=== PATIENT | female | born 1940 | race Caucasian/White ===

== ENCOUNTER 2022-07-29 00:17 | Day surgery (SDC) | payer MEDICARE, SELFPAY ==
[2022-07-18 13:18] VITALS: BMI 33.5
[2022-07-29 09:09] VITALS: BP 180/61; PULSE 57; RESP 18; TEMP 36.1; O2SAT 100; BMI 34.8
[2022-07-29] MEDS: LACTATED RINGERS 1,000 ML 150 ML IV CONT (09:25)
[2022-07-29 09:33] LABS: Glucose Point of Care 119 mg/dl (65-105)
--- NOTE | 2022-07-29 09:50 | PM.HPGS ---
History of Present Illness History of Present Illness Consent: Risks, benefits, and alternatives have been discussed and questions answered. Patient agrees to proceed with procedure. Chief complaint: neoplasm screening Narrative: Chela Paz is a 81 year old female Presents for screening colonoscopy. Patient reports her weight appetite bowel movements are normal. She describes intermittent bright red blood per rectum over the last 3 years. She states her bowel habits sometimes are regular. She states many years ago she was diagnosed with an anal fissure. Patient presents today for neoplasia screening. She reports her family history to be noncontributory. Review of Systems Review of Systems: Review of systems noncontributory. [facility] Past Medical History Medical History (Updated 06/03/22 @ 09:35 by Rodrigo Mixon MD) Anal fissure BMI 34.0-34.9,adult BMI 35.0-35.9,adult BMI 36.0-36.9,adult Mixed hyperlipidemia Family History Family History Father Heart disease Mother Hypertension Lung cancer Diabetes mellitus Social History Social History Smoking status: Never smoker Second hand tobacco smoke exposure: No Alcohol intake: never Substance use: never Substance use type: does not use Living arrangements: with family Additional occupation/education comments: RN Gender identity (if verbalized by the patient): Female Spiritual care concerns: No Meds Home Medications and Allergies Home Medications Medication Instructions Recorded Confirmed Type ascorbic acid (vitamin C) 500 mg 500 mg PO DAILY 11/07/19 07/18/22 History capsule aspirin 81 mg tablet,delayed 81 mg PO DAILY 11/07/19 07/18/22 History release (Adult Low Dose Aspirin) glucosamine-chondroitin 250 mg-200 1 tablet PO DAILY 11/07/19 07/18/22 History mg tablet (Osteo Bi-Flex) hsppdbak-mdd-nywpq acid 0.4 1 tablet PO DAILY 11/07/19 07/18/22 History mg-lycopene 300 mcg-lutein 250 mcg tablet (Centrum Silver) blood sugar diagnostic (OneTouch #50 ea 07/23/20 07/18/22 Rx Ultra Blue Test Strip) albuterol sulfate 90 mcg/actuation 2 puff inhalation Q4H PRN 10/22/20 07/18/22 Rx aerosol inhaler (Ventolin HFA) shortness of breath or wheezing #8.5 grams furosemide 20 mg tablet (Lasix) 20 mg PO QAM PRN edema 01/28/21 07/18/22 History methocarbamol 500 mg tablet 500 mg PO TID PRN muscle spasm #30 09/23/21 07/18/22 Rx tabs losartan 100 mg tablet 100 mg PO DAILY #90 tabs 01/08/22 07/18/22 Rx atenolol 50 mg tablet 50 mg PO DAILY #90 tabs 03/13/22 07/18/22 Rx hydrochlorothiazide 25 mg tablet 25 mg PO DAILY #90 tabs 03/13/22 07/18/22 Rx montelukast 10 mg tablet 10 mg PO DAILY #90 tabs 03/13/22 07/18/22 Rx (Singulair) dapagliflozin 5 mg tablet (Farxiga) 5 mg PO DAILY #90 tabs 03/31/22 07/18/22 Rx sodium,potassium,mag sulfates 17.5 See Rx Instructions PO .COMPLEX 06/26/22 07/18/22 Rx gram-3.13 gram-1.6 gram oral soln #354 mL (Suprep Bowel Prep Kit) meloxicam 15 mg tablet 15 mg PO DAILY #90 tabs 07/03/22 07/18/22 Rx fluticasone propionate 50 1 spray intranasal DAILY PRN 07/18/22 07/18/22 History mcg/actuation nasal Allergy Symptoms spray,suspension levothyroxine 125 mcg tablet 125 mcg PO DAILY 07/18/22 07/18/22 History Allergies Allergy/AdvReac Type Severity Reaction Status Date / Time adhesive Allergy Unknown Rash Verified 07/29/22 09:08 codeine Allergy Unknown Nausea Verified 07/29/22 09:08 iodine Allergy Unknown Rash Verified 07/29/22 09:08 Vital Signs Vital Signs - 24 hr 07/29/22 09:09 Temperature 97.0 F L Pulse Rate 57 L Respiratory Rate 18 Blood Pressure 180/61 H Pulse Oximetry 100 Oxygen Delivery Room Air Exam Narrative: Physical exam reveals patient to be alert. Vital signs stable. HEENT exam is unremarkable. Patient is anicteric. Lungs are clear to auscultati
--- NOTE | 2022-07-29 09:59 | WPDANESEPPF ---
Anes - Initial Pre Proc Eval Procedure: Operation Date: 07/29/22 10:15 Proposed Procedures p Screening Colonoscopy - Pablo Hidalgo MD Date/Time: 07/29/22 09:59 Surgeon: Pablo Hidalgo MD Pre Op Diagnosis: neoplasm screening Patient Data Age: 81 Gender: F Height: 1.57 m Weight: 86.4 kg Last Vital Signs Temp 97.0 F L 07/29/22 09:09 Pulse 57 L 07/29/22 09:09 Resp 18 07/29/22 09:09 BP 180/61 H 07/29/22 09:09 Pulse Ox 100 07/29/22 09:09 O2 Del Method Room Air 07/29/22 09:09 Allergies Allergy/AdvReac Type Severity Reaction Status Date / Time adhesive Allergy Unknown Rash Verified 07/29/22 09:08 codeine Allergy Unknown Nausea Verified 07/29/22 09:08 iodine Allergy Unknown Rash Verified 07/29/22 09:08 Home Medications Medication Instructions Recorded Confirmed Type ascorbic acid (vitamin C) 500 mg 500 mg PO DAILY 11/07/19 07/18/22 History capsule aspirin 81 mg tablet,delayed 81 mg PO DAILY 11/07/19 07/18/22 History release (Adult Low Dose Aspirin) glucosamine-chondroitin 250 mg-200 1 tablet PO DAILY 11/07/19 07/18/22 History mg tablet (Osteo Bi-Flex) kdgipycd-ceh-dolmk acid 0.4 1 tablet PO DAILY 11/07/19 07/18/22 History mg-lycopene 300 mcg-lutein 250 mcg tablet (Centrum Silver) blood sugar diagnostic (OneTouch #50 ea 07/23/20 07/18/22 Rx Ultra Blue Test Strip) albuterol sulfate 90 mcg/actuation 2 puff inhalation Q4H PRN 10/22/20 07/18/22 Rx aerosol inhaler (Ventolin HFA) shortness of breath or wheezing #8.5 grams furosemide 20 mg tablet (Lasix) 20 mg PO QAM PRN edema 01/28/21 07/18/22 History methocarbamol 500 mg tablet 500 mg PO TID PRN muscle spasm #30 09/23/21 07/18/22 Rx tabs losartan 100 mg tablet 100 mg PO DAILY #90 tabs 01/08/22 07/18/22 Rx atenolol 50 mg tablet 50 mg PO DAILY #90 tabs 03/13/22 07/18/22 Rx hydrochlorothiazide 25 mg tablet 25 mg PO DAILY #90 tabs 03/13/22 07/18/22 Rx montelukast 10 mg tablet 10 mg PO DAILY #90 tabs 03/13/22 07/18/22 Rx (Singulair) dapagliflozin 5 mg tablet (Farxiga) 5 mg PO DAILY #90 tabs 03/31/22 07/18/22 Rx sodium,potassium,mag sulfates 17.5 See Rx Instructions PO .COMPLEX 06/26/22 07/18/22 Rx gram-3.13 gram-1.6 gram oral soln #354 mL (Suprep Bowel Prep Kit) meloxicam 15 mg tablet 15 mg PO DAILY #90 tabs 07/03/22 07/18/22 Rx fluticasone propionate 50 1 spray intranasal DAILY PRN 07/18/22 07/18/22 History mcg/actuation nasal Allergy Symptoms spray,suspension levothyroxine 125 mcg tablet 125 mcg PO DAILY 07/18/22 07/18/22 History Laboratory Tests 07/29/22 09:30 POC Capillary Glucose 119 mg/dl H mg/dl (65-105) Patient hx anesthesia problems: none Family hx anesthesia problems: none Results Review: All pre-operative results and documents have been reviewed as part of the pre-operative evaluation. [facility] Past Medical History Medical History (Updated 06/03/22 @ 09:35 by Rodrigo Mixon MD) Anal fissure BMI 34.0-34.9,adult BMI 35.0-35.9,adult BMI 36.0-36.9,adult Mixed hyperlipidemia Family History Family History Father Heart disease Mother Hypertension Lung cancer Diabetes mellitus Social History Social History Smoking status: Never smoker Second hand tobacco smoke exposure: No Alcohol intake: never Substance use: never Substance use type: does not use Living arrangements: with family Additional occupation/education comments: RN Gender identity (if verbalized by the patient): Female Spiritual care concerns: No Anes - Eval Final PreProcedure Day of Procedure 07/29/22 09:59 Patient weight: obese Heart: regular rate and rhythm Lungs: clear to auscultation Airway: Mallampati scale class III Neurological: alert and oriented Last oral intake: >/= 8 hours ASA classification: III Emergent: no Anesthetic plan: proceed Anesthesia
[2022-07-29 10:20] VITALS: BP 125/62; PULSE 58; RESP 22; O2SAT 95
[2022-07-29 10:30] VITALS: BP 148/67; PULSE 57; RESP 22; O2SAT 96
[2022-07-29 10:40] VITALS: BP 153/69; PULSE 57; RESP 21; O2SAT 97
== END 2022-07-29 10:57 | disposition home or self-care (01) ==
PROVIDERS: PCP Family Medicine; Visit Provider Internal Medicine Gastroenterology
PROC: 0DJD8ZZ Inspection of Lower Intestinal Tract, Via Natural or Artificial Opening Endoscopic (ICD-10-PCS; CPT 45378; principal; 2022-07-29 10:15)
DX: Z12.11 Encounter for screening for malignant neoplasm of colon (principal); K64.8 Other hemorrhoids; K57.30 Diverticulosis of large intestine without perforation or abscess without bleeding; K62.5 Hemorrhage of anus and rectum; Z79.82 Long term (current) use of aspirin; Z79.51 Long term (current) use of inhaled steroids; Z79.84 Long term (current) use of oral hypoglycemic drugs; E66.9 Obesity, unspecified; Z68.34 Body mass index [BMI] 34.0-34.9, adult
CPT/HCPCS: G0121; 82948; J2704; J7120

== ENCOUNTER 2023-01-12 11:57 | Outpatient (CLI) | payer MEDICARE, SELFPAY ==
--- NOTE | ~2023-01-12 | MMUS_ITS ---
EXAMINATION: US breast biopsy LT w image, MM post biopsy invasive LT DATE: 01/12/2023 13:56 (accession [id number]), 01/12/2023 13:59 (accession [id number]) INDICATION: Indeterminate left breast mass Ultrasound-guided core biopsy is requested to evaluate for malignancy. TECHNIQUE AND FINDINGS: The risks and potential benefits of the procedure were discussed with the patient including bleeding and infection. A time out was performed. The skin of the left breast was prepared and draped in usual sterile fashion. 1% lidocaine was used for superficial anesthesia. 1% lidocaine with epinephrine was used for deep anesthesia. A vacuum-assisted biopsy needle was advanced through to the outer edge of the region of interest from a superolateral approach utilizing sonographic guidance. A total of three tissue core samples were o btained through the lesion. A tissue marker clip was then placed at the biopsy site. Hemostasis was a chieved. A sterile bandage was applied. The patient tolerated procedure well. A small hematoma was seen developing at the biopsy site at the end of the procedure and extended post biopsy compression was administered. The patient was given shahzad bal instructions to return to the Emergency Department in the event of severe breast pain or rapid br east enlargement. A two view left breast mammogram was obtained to document tissue marker clip placem ent. The position of the marker relative to the biopsy mass is difficult to assess given the biopsy s ite hematoma. IMPRESSION: 1. Successful ultrasound-guided vacuum-assisted biopsy of left breast mass with tissue marker placeme nt. Reviewed, dictated and finalized at location A. IMPRESSION: 1. Successful ultrasound-guided vacuum-assisted biopsy of left breast mass with tissue marker placement.
== END 2023-01-12 11:58 | disposition home or self-care (01) ==
PROVIDERS: PCP Family Medicine; Visit Provider Nurse Practitioner Family
DX: C84.00 Mycosis fungoides, unspecified site (principal); C84.0 Mycosis fungoides; R92.0 Mammographic microcalcification found on diagnostic imaging of breast
CPT/HCPCS: 19083; 88305; 88342; A4648

== ENCOUNTER 2024-04-19 14:15 | Outpatient (CLI) | payer MEDICARE, SELFPAY ==
--- NOTE | 2024-04-19 16:32 | WPDPFTINT ---
PFT Procedure Performed PFT Procedure Performed Spirometry with Pre/Post Bronchodilator Plethysmography (Lung Vol) Diffusing Cap (DLCO) Flow Vol Loop PFT Interpretation This is a pulmonary function test with pre and post-bronchodilator spirometry, plethysmography and diffusing capacity. The test was performed and results interpreted in accordance with the 2019 and 2005 ATS/ERS Task Force guidelines respectively using the Global Lung Function Initiative-2012 reference equations. Patient demonstrated good effort and cooperation. Reproducibility criteria were met. The quality of the pre bronchodilator spirometry maneuver was Grade B and post bronchodilator spirometry maneuver was Grade A. Findings: Spirometry: the contour the expiratory flow tracing resembles a witch's hat . The contour the inspiratory flow tracing is normal. The pre bronchodilator FVC is 1.63 L, 79% predicted. The pre bronchodilator FEV1 is 1.23 L, 77% predicted. The pre bronchodilator FEV1: FVC ratio 75%. The post bronchodilator FVC is 1.64 L, representing a 1% increase. The post bronchodilator FEV1 is 1.32 L, representing an 8% increase. The post bronchodilator FEV1: FVC ratio is 81%. Plethysmography: The total lung capacity is 2.85 L, 66% predicted. The functional residual capacity is 1.18 L, a 48% predicted. The residual volume is 1.01 L, 46% predicted. Diffusing capacity: The diffusing capacity unadjusted for hemoglobin and carboxyhemoglobin is 8.4, 49% predicted. The diffusing capacity adjusted for alveolar volume is 3.21, 74% predicted. Impression: There is a mild restrictive ventilatory abnormality with a normal FEV1. The spirometry is normal without evidence of an obstructive abnormality. There is no significant improvement after inhaling a single dose of albuterol. The diffusing capacity unadjusted for hemoglobin and carboxyhemoglobin is moderately decreased and normalizes when adjusted for alveolar volume. There are no prior studies for comparison
== END 2024-04-19 14:16 | disposition home or self-care (01) ==
LOC: ANHPFT 14:17
PROVIDERS: PCP Family Medicine; Visit Provider Family Medicine
DX: R06.09 Other forms of dyspnea (principal); I10 Essential (primary) hypertension; J45.909 Unspecified asthma, uncomplicated; R06.02 Shortness of breath; R94.2 Abnormal results of pulmonary function studies
CPT/HCPCS: 94060; 94726; 94729

== ENCOUNTER 2024-05-02 14:33 | Outpatient (CLI) | payer MEDICARE, SELFPAY ==
--- NOTE | ~2024-05-02 | CT_ITS ---
EXAMINATION:CT chest high resolution wo ut DATE: 05/02/2024 14:58 INDICATION: Other forms of dyspnea. TECHNIQUE: Computed tomography (CT) of the chest was performed without intravenous contrast. Automate d exposure control and iterative reconstruction technique were employed. The dose-length product (DLP ) was 355.50 mGy-cm. COMPARISON: CT abdomen and pelvis 12/11/2003 FINDINGS: There are mild groundglass opacities and septal thickening and mild volume loss involving t he inferior lungs, worst in the lower lobes. No bronchiectasis or honeycombing. No pleural effusion. Cardiomegaly is noted. There are coronary artery calcifications. No pericardial effusion. There is a small sliding hiatal hernia. There is diffuse hepatic steatosis. There is severe thoracic spondylosis . IMPRESSION: 1. Mild chronic interstitial lung disease, stable from 12/11/2003. 2. Small sliding hiatal hernia. Reviewed, dictated and finalized at location A.
== END 2024-05-02 14:34 | disposition home or self-care (01) ==
PROVIDERS: PCP Family Medicine; Visit Provider Nurse Practitioner Family
DX: R06.09 Other forms of dyspnea (principal); K44.9 Diaphragmatic hernia without obstruction or gangrene; J84.9 Interstitial pulmonary disease, unspecified
CPT/HCPCS: 71250

== ENCOUNTER 2024-05-20 08:23 | Outpatient (CLI) | payer MEDICARE, SELFPAY ==
--- NOTE | ~2024-05-20 | NM_ITS ---
EXAMINATION: NM shanika stress w perfusion DATE: 05/20/2024 10:10 INDICATION: Other forms of dyspnea TECHNIQUE: Rest images were obtained following intravenous administration of 9.9 mCi Tc99m tetrofosmi n (Myoview). The patient was infused intravenously with Lexiscan (Regadenoson). Then, 31.5 mCi Tc99m tetrofosmin (Myoview) was administered intravenously, and stress images were obtained. Data was recon structed into short axis and horizontal and vertical long axis SPECT images. Gated SPECT images were also obtained. COMPARISON: None. FINDINGS: There is no definite reversible or fixed perfusion abnormality to suggest ischemia or infar ction. There is normal left ventricular chamber size, wall motion and ejection fraction. Left ventr icular ejection fraction measures >70%. IMPRESSION: 1. Normal myocardial perfusion at during stress. 2. Left ventricular ejection fraction measuring >70%. Reviewed, dictated and finalized at location A.
--- NOTE | 2024-05-20 08:28 | EST_ITS ---
Patient Info Name: Chela Paz Age: 83 years : 1940 Gender: Female Ht: 59 in Wt: 193 lbs BSA: 1.96 m2 Exam Date: 05/20/2024 9:19 AM Exam Location: [facility] Patient Status: Outpatient Admit Date: 05/20/2024 Staff Ordering Physician: Rodrigo Mixon MD Attending Provider: Rodrigo Mixon MD Exercise Technologist: Leola Johnson RDCS Exercise Physician: Pardeep Post DO Exam Type: CA stress shanika w NM Study Info Indications R06.09 - Other forms of dyspnea A regadenoson stress test was performed. Summary 1. 1. Negative lexiscan stress test for ischemic ST changes by ECG criteria. 2. 2. Stable hemodynamics throughout the test. 3. 3. Nuclear scan to follow and will be reported separately. Please correlate with it. 4. 4. Patient informed of the above results. Protocol: Lexiscan Stress ECG Details Stage: REST Duration (min): 1 min : 50 sec HR (bpm): 56 SBP (mmHg): 120 DBP (mmHg): 54 Stage: REST Duration (min): 11 min : 9 sec HR (bpm): 54 SBP (mmHg): 120 DBP (mmHg): 54 Stage: STAGE 1 Duration (min): 1 min : 0 sec HR (bpm): 65 SBP (mmHg): 163 DBP (mmHg): 54 Stage: RECOVERY Duration (min): 1 min : 0 sec HR (bpm): 75 SBP (mmHg): 163 DBP (mmHg): 54 Stage: RECOVERY Duration (min): 2 min : 0 sec HR (bpm): 76 SBP (mmHg): 163 DBP (mmHg): 54 Stage: RECOVERY Duration (min): 3 min : 0 sec HR (bpm): 73 SBP (mmHg): 163 DBP (mmHg): 54 Stage: RECOVERY Duration (min): 4 min : 0 sec HR (bpm): 72 SBP (mmHg): 146 DBP (mmHg): 62 Stage: RECOVERY Duration (min): 4 min : 2 sec HR (bpm): 72 SBP (mmHg): 146 DBP (mmHg): 62 Rest HR: 54 bpm Peak HR: 78 bpm Rest Sys BP: 120 mmHg Peak Sys BP: 163 mmHg Max Pred HR: 138 bpm % Max Pred HR: 57 % Target HR: 117 bpm Max RPP: 12,714 bpm*mmHg Termination Reason: Completed protocol Total Time: 1 min : 0 sec Rest Sommers BP: 54 mmHg Peak Sommers BP: 54 mmHg Total Dose: 0.4 mg Resting ECG Sinus bradycardia, low voltage in diffuse leads. Stress ECG No ST changes. Arrhythmias None. Report Signatures
== END 2024-05-20 08:24 | disposition home or self-care (01) ==
LOC: ANHCARD 08:25
PROVIDERS: PCP Family Medicine; Visit Provider Family Medicine
DX: R06.09 Other forms of dyspnea (principal); I10 Essential (primary) hypertension; J45.909 Unspecified asthma, uncomplicated; R06.02 Shortness of breath
CPT/HCPCS: 78452; 93017; A9502; J2785